=== PATIENT | female | born 1955 | race Hispanic/Latino ===

== ENCOUNTER → 2017-07-02 | Outpatient (CLI) | payer OTHER ==
[2017-07-02 17:36] LABS: SPECIMENTYPE,BODY FLUID PLEURAL
[2017-07-02 17:37] LABS: APPEARANCE BODY FLUID SLIGHTLY CLOUDY (CLEAR); BODY FLUID RBC 745 /cu. mm.; BODY FLUID WBC 25 /cu. mm.; COLOR,BODY FLUID YELLOW (LT YELLOW); TOTAL VOLUME,BODY FLUID 100 mL
[2017-07-02 18:42] LABS: BF LYMPHOCYTE 84 %; BF MONOCYTE 4 %
== END | disposition home or self-care (01) ==
LOC: RAH 12:17
PROVIDERS: ATTEND Family Medicine
DX: J90 Pleural effusion, not elsewhere classified (principal); N18.6 End stage renal disease; D64.9 Anemia, unspecified; R53.81 Other malaise; Z99.2 Dependence on renal dialysis
CPT/HCPCS: 32557; 36415; 71045; 82945; 83615; 84157; 84478; 87071; 87103; 87116; 87205; 87206 ×2; 88108; 88305; 89051; A7048; C1729; C1769